=== PATIENT | female | born 1995 | race Caucasian/White ===

== ENCOUNTER 2016-11-17 17:48 | Emergency (ER) | payer OTHER ==
[~2016-11-17] VITALS: Ht 160 cm; Wt 67.0 kg
[~2016-11-17 17:48] MED LIST: BUSP5TAB PO; CITA10TA4 PO; CORT1SOL LEFT EAR; IBUP-232 PO; IMUR50TA PO; INFL100P; LIAL1.2T PO
[2016-11-17 17:55] VITALS: BP 116/89; PULSE 96; RESP 18; TEMP 98.9; O2SAT 98
[2016-11-17] MEDS ORDERED: diphenhydrAMINE HCL 50 MG/ML VIAL IV PUSH ONE (19:30)
[2016-11-17] MEDS ORDERED: KETOROLAC TROMETHAMINE 30 MG/ML (IVP) VIAL IV PUSH ONE (19:30)
[2016-11-17] MEDS ORDERED: SODIUM CHLOR 0.9% 1000 ML INJ 1,000 ML IV ONE (19:30)
[2016-11-17] MEDS ORDERED: PROCHLORPERAZINE INJ 10 MG/2 ML VIAL IV PUSH ONE (19:30)
--- NOTE | 2016-11-17 19:56 | RADHPO ---
EXAM DATE/TIME: 11/17/2016 19:35 [facility] COMPARISON: No previous studies available for comparison. INDICATIONS : Cough, headache and short of breath. MEDICAL HISTORY : None. SURGICAL HISTORY : None. ENCOUNTER: Initial ACUITY: 1 week PAIN SCORE: 0/10 LOCATION: Bilateral chest FINDINGS: The lungs are clear without infiltrate, nodule, or mass. There is no appreciable pleural effusion fo r technique. Heart and mediastinum are unremarkable. CONCLUSION: No acute cardiopulmonary disease. Martinez Connelly MD on November 17, 2016 at 19:54 Board Certified Radiologist. This report was verified electronically.
[2016-11-17 21:00] VITALS: BP 114/68; PULSE 77; RESP 16; O2SAT 98
--- NOTE | 2016-11-17 21:11 | PD ---
HPI Chief Complaint: Cold / Flu Symptoms Time Seen by Provider: 19:16 Travel History International Travel<30 days: No Contact w/Intl Traveler<30days: No Traveled to known affect area: No History of Present Illness HPI Patient is a 21-year-old female with history of Crohn's disease who comes in complaining of a headache and feeling unwell. She says she has had a frontal headache for the past week. She also reports having a cough, and generalized body aches. She says she has felt feverish, but has not taken her temperature. She denies any nausea or vomiting or abdominal pain. She denies any blurred vision. She denies any head trauma. She denies any shortness of breath. PFSH Past Medical History Anxiety: Yes Depression: Yes Diminished Hearing: No Gastrointestinal Disorders: Yes (Crohn's disease) Immunizations Current: Yes Ulcer: Yes (GASTRIC AND INTESTINAL) ?: Not : 0 Social History Alcohol Use: Yes (OCC) Tobacco Use: No Substance Use: No Allergies-Medications (Allergen,Severity, Reaction): Coded Allergies: No Known Allergies (Verified , 11/17/16) Reported Meds & Prescriptions Reported Meds & Active Scripts Active Cortisporin HC Otic Drops (Lrmyqumf-Bwutsndop-HU Otic Drops) 3.5-10,000-1 Mg- Units-% Soln 4 Drop LEFT EAR QID Ibuprofen 600 Mg Tab 600 Mg PO TID Reported Citalopram (Citalopram Hydrobromide) 10 Mg Tab 10 Mg PO DAILY Buspirone (Buspirone HCl) 5 Mg Tab 5 Mg PO DAILY Lialda (Mesalamine) 1.2 Gm Tabdr 1.2 Gm PO BID Take with a meal. Imuran (Azathioprine) 50 Mg Tab 50 Mg PO DAILY Hazardous agent: use appropriate precautions for handling and disposal. Remicade Inj (Infliximab) 100 Mg Inj EVERY 8 WEEKS Review of Systems General / Constitutional: Positive: Fever, No: Chills Eyes: No: Blurred Vision HENT: Positive: Headaches, No: Neck Stiffness, Neck Pain Cardiovascular: No: Chest Pain or Discomfort Respiratory: Positive: Cough, No: Shortness of Breath Gastrointestinal: No: Nausea, Vomiting, Abdominal Pain Skin: No Rash, No Change in Pigmentation Neurologic: No: Weakness, Dizziness Physical Exam Narrative GENERAL: Awake and alert, in no acute distress. SKIN: Focused skin assessment warm/dry. HEAD: Atraumatic. Normocephalic. EYES: Pupils equal and round. No scleral icterus. Extraocular movements intact. ENT: No nasal bleeding or discharge. Mucous membranes pink and moist. NECK: Trachea midline. No JVD. No meningeal signs. CARDIOVASCULAR: Regular rate and rhythm. No murmur appreciated. RESPIRATORY: No accessory muscle use. Clear to auscultation. Breath sounds equal bilaterally. MUSCULOSKELETAL: No obvious deformities. No clubbing. No cyanosis. No edema. NEUROLOGICAL: Awake and alert. No obvious cranial nerve deficits. Motor grossly within normal limits. Normal speech. Data Data Last Documented VS Vital Signs Date Time Temp Pulse Resp B/P Pulse Ox O2 Delivery O2 Flow Rate FiO2 11/17/16 21:37 16 11/17/16 21:00 77 114/68 98 Room Air 11/17/16 17:55 98.9 Orders Ed Urine Pregnancytest Poc (11/17/16 19:24) Chest, Pa & Lat (11/17/16 ) Sodium Chlor 0.9% 1000 Ml Inj (Ns 1000 M (11/17/16 19:30) Ketorolac Inj (Toradol Inj) (11/17/16 19:30) Prochlorperazine Inj (Compazine Inj) (11/17/16 19:30) Diphenhydramine Inj (Benadryl Inj) (11/17/16 19:30) Iv Access Insert/Monitor (11/17/16 19:24) MDM Medical Decision Making Medical Screen Exam Complete: Yes Emergency Medical Condition: Yes Differential Diagnosis URI versus influenza versus viral illness versus migraine Narrative Course Patient is a 21 year old female who comes in complaining of cough and headache. Exam shows no neurologic abnormalities, no other abnormalities. CXR performed shows no acute abnormalities. Given IVF, Compazine, benadryl and toradol. She reports resolution of her headache. Will be discharged with prescription for Fioricet. Advised to follow up with her doctor. Advised to return to the ED as needed for any worsening symptoms. Diagnosis Primary Impression: Headache Qualified Code: R51 - Acute nonintractable headache, unspecified headache type Patient Instructions: Acute Headache (ED), General Instructions Additional Instructions: Drink plenty of fluids. Take Fioricet as needed for severe headache, do not combine with Tylenol as it has Tylenol in it. Return to the ED as needed for any worsening symptoms. Follow up with your doctor. Scripts Zdboouqtxw-Dsrmhrjbzqmwd-Fktapbhr (Fioricet)50-300-40 Mg Cap1 Cap PO Q4H PRN ( HEADACHE) #15 CAP Ref 0 Prov:Stephanie Mccarthy MD 11/17/16 Disposition: 01 DISCHARGE HOME Condition: Stable Stephanie Mccarthy MD Nov 17, 2016 21:11
[2016-11-17 21:37] VITALS: RESP 16
[2016-11-17] MEDS ORDERED: BUTA1CAP PO (21:41)
== END 2016-11-17 21:47 | disposition home or self-care (01) ==
LOC: PHED 17:48 → PHEFT 21:47
DX: R51 Headache (principal); R05 Cough; R52 Pain, unspecified; F41.9 Anxiety disorder, unspecified; F32.9 Major depressive disorder, single episode, unspecified; K50.90 Crohn's disease, unspecified, without complications
CPT/HCPCS: 71020; 84703; 96361; 96374; 96375; 99284; J0780; J1200; J1885; J7030

== ENCOUNTER 2016-12-07 17:32 | Emergency (ER) | payer OTHER ==
[~2016-12-07] VITALS: Ht 160 cm; Wt 66.7 kg
[~2016-12-07 17:32] MED LIST changes: +BUTA1CAP PO
[2016-12-07 17:38] VITALS: BP 128/87; PULSE 102; RESP 16; TEMP 98.2; O2SAT 98
[2016-12-07] MEDS ORDERED: SODIUM CHLORIDE 0.9% FLUSH 10 ML FLUSH IV FLUSH PRN (17:45)
[2016-12-07] MEDS ORDERED: DICY10 PO (17:52)
[2016-12-07 17:55] VITALS: O2SAT 98
--- NOTE | 2016-12-07 17:56 | PD ---
HPI Chief Complaint: GI Complaint Time Seen by Provider: 17:51 Travel History International Travel<30 days: No Contact w/Intl Traveler<30days: No Traveled to known affect area: No History of Present Illness HPI 21-year-old female with history of Crohn's disease, presents to the ER today for 1 week history of crampy lower abdominal pains which she states is a 7 out of 10, nausea, one episode of vomiting this morning, and multiple episodes of diarrhea daily. She denies any blood in the stools or black stools this time. She denies any fevers or any other symptoms. She is due for her Remicade which mom states she gets every 8 weeks. She has not yet been able to get her Remicade shot because of insurance issues. Modifying Factors: None Associated Signs & Symptoms: Lower abdominal pain, nausea, vomiting, diarrhea Risk Factors: Crohn's disease PFSH Past Medical History Anxiety: Yes Depression: Yes Diminished Hearing: No Gastrointestinal Disorders: Yes (Crohn's disease) Immunizations Current: Yes Ulcer: Yes (GASTRIC AND INTESTINAL) ?: Not LMP: 11/30/16 : 0 Social History Alcohol Use: Yes ([facility]) Tobacco Use: No Substance Use: No Allergies-Medications (Allergen,Severity, Reaction): Coded Allergies: No Known Allergies (Verified , 12/07/16) Reported Meds & Prescriptions Reported Meds & Active Scripts Active Reported Bentyl (Dicyclomine HCl) 10 Mg Cap 10 Mg PO TID PRN Remicade Inj (Infliximab) 100 Mg Inj EVERY 8 WEEKS Review of Systems Except as stated in HPI: all other systems reviewed are Neg Physical Exam Narrative GENERAL: Well-developed young white female patient currently mild distress. Awake and oriented 3. SKIN: Focused skin assessment warm/dry. HEAD: Atraumatic. Normocephalic. EYES: Pupils equal and round. No scleral icterus. No injection or drainage. ENT: No nasal bleeding or discharge. Mucous membranes pink and moist. NECK: Trachea midline. No JVD. CARDIOVASCULAR: Regular rate and rhythm. No murmur appreciated. RESPIRATORY: No accessory muscle use. Clear to auscultation. Breath sounds equal bilaterally. GASTROINTESTINAL: Abdomen soft, mild lower abdominal tenderness without guarding or rebound, nondistended. Hepatic and splenic margins not palpable. MUSCULOSKELETAL: No obvious deformities. No clubbing. No cyanosis. No edema. NEUROLOGICAL: Awake and alert. No obvious cranial nerve deficits. Motor grossly within normal limits. Normal speech. PSYCHIATRIC: Appropriate mood and affect; insight and judgment normal. Data Data Last Documented VS Vital Signs Date Time Temp Pulse Resp B/P Pulse Ox O2 Delivery O2 Flow Rate FiO2 12/07/16 17:55 98 Room Air 12/07/16 17:38 98.2 102 16 128/87 Orders Complete Blood Count With Diff (12/07/16 17:44) Comprehensive Metabolic Panel (12/07/16 17:44) Lipase (12/07/16 17:44) Urinalysis - C+S If Indicated (12/07/16 17:44) Iv Access Insert/Monitor (12/07/16 17:44) Ecg Monitoring (12/07/16 17:44) Oximetry (12/07/16 17:44) Sodium Chloride 0.9% Flush (Ns Flush) (12/07/16 17:45) Ed Urine Pregnancytest Poc (12/07/16 17:44) Sodium Chlor 0.9% 1000 Ml Inj (Ns 1000 M (12/07/16 18:00) Ondansetron Inj (Zofran Inj) (12/07/16 18:00) Hydromorphone Pf Inj (Dilaudid Pf Inj) (12/07/16 18:00) Abdomen, Flat & Upright (12/07/16 17:52) Labs Laboratory Tests Test 12/07/16 18:10 White Blood Count 10.4 TH/MM3 Red Blood Count 4.45 MIL/MM3 Hemoglobin 11.6 GM/DL Hematocrit 35.8 % Mean Corpuscular Volume 80.4 FL Mean Corpuscular Hemoglobin 26.1 PG Mean Corpuscular Hemoglobin 32.5 % Concent Red Cell Distribution Width 15.7 % Platelet Count 401 TH/MM3 Mean Platelet Volume 7.4 FL Neutrophils (%) (Auto) 60.3 % Lymphocytes (%) (Auto) 22.0 % Monocytes (%) (Auto) 14.5 % Eosinophils (%) (Auto) 2.5 % Basophils (%) (Auto) 0.7 % Neutrophils # (Auto) 6.2 TH/MM3 Lymphocytes # (Auto) 2.3 TH/MM3 Monocytes # (Auto) 1.5 TH/MM3 Eosinophils # (Auto) 0.3 TH/MM3 Basophils # (Auto) 0.1 TH/MM3 CBC Comment DIFF FINAL Differential Comment Urine Collection Type CLEAN CATCH Urine Color YELLOW Urine Turbidity CLEAR Urine pH 5.5 Urine Specific [place] 1.012 Urine Protein NEG mg/dL Urine Glucose (UA) NEG mg/dL Urine Ketones 15 mg/dL Urine Occult Blood TRACE Urine Nitrite NEG Urine Bilirubin NEG Urine Leukocyte Esterase NEG Urine WBC 0-2 /hpf Urine Squamous Epithelial 0-5 /hpf Cells Microscopic Urinalysis Comment CULT NOT INDICATED Sodium Level 140 MEQ/L Potassium Level 3.5 MEQ/L Chloride Level 105 MEQ/L Carbon Dioxide Level 26.0 MEQ/L Anion Gap 9 MEQ/L Blood Urea Nitrogen 10 MG/DL Creatinine 0.80 MG/DL Estimat Glomerular Filtration 91 ML/MIN Rate Random Glucose 84 MG/DL Calcium Level 8.4 MG/DL Total Bilirubin 0.5 MG/DL Aspartate Amino Transf 18 U/L (AST/SGOT) Alanine Aminotransferase 16 U/L (ALT/SGPT) Alkaline Phosphatase 83 U/L Total Protein 8.0 GM/DL Albumin 3.5 GM/DL Lipase 175 U/L MDM Medical Decision Making Medical Screen Exam Complete: Yes Emergency Medical Condition: Yes Medical Record Reviewed: Yes Interpretation(s) Laboratory Tests Test 12/07/16 18:10 Mean Corpuscular Hemoglobin 26.1 PG (27.0-34.0) Monocytes (%) (Auto) 14.5 % (0.0-8.0) Monocytes # (Auto) 1.5 TH/MM3 (0-0.9) Urine Ketones 15 mg/dL (NEG) Urine Occult Blood TRACE (NEG) Calcium Level 8.4 MG/DL (8.5-10.1) Last 24 hours Impressions Abdomen X-Ray 12/07/16 1442 Signed Impressions: Service Date/Time: Wednesday, December 07, 2016 18:44 - CONCLUSION: No dilated loops of small or large bowel. Petros Emery MD Differential Diagnosis Lower abdominal pains, diarrhea, nausea, vomitingCrohn's exacerbation versus gastroenteritis versus colitis versus diverticulitis versus dehydration versus metabolic issues versus UTI versus Narrative Course Lab work did not indicate significant leukocytosis or signs of dehydration or metabolic issues. Abdomen is fairly soft and x-ray did not show any signs of acute obstruction. I do not suspect an acute intra-abdominal process in this case but I do suspect that she may have a Crohn's exacerbation. Symptoms are consistent with a Crohn's exacerbation. My plan would be to treat her Crohn's exacerbation with steroids and symptomatic relief and have her follow-up with primary care and GI doctor. She does not remember the name of her current GI doctor. She also points out a left eyelid irritation and points out a small ulcer on the left lower eyelid laterally on the conjunctival which has been there for several days. She states the last time she had a Crohn's exacerbation she also had some left eye irritation as well but she was not evaluated for it. Her case was discussed with Dr. Kurtz who states that we can try erythromycin eye ointment and have her follow-up with her and her clinic. Patient should return for any worsening in vomiting, pain, fevers, or new symptoms as needed. I have talked with patient and mom regarding getting x- rays versus CAT scans. At this point, I do not see any obvious indication such as abnormal lab work, point tenderness, signs of acute abdomen, or other signs and x-rays to obtain CT scanning. Considering patient's age, we are trying to keep her radiation exposure and scanning down. I have talked to the patient and mom regarding this and they state understanding and are comfortable with not obtaining CT scanning at this time. The plan as well the risks were discussed with patient and mom and they stated understanding. Diagnosis Primary Impression: Exacerbation of Crohn's disease Additional Impression: Marginal corneal ulcer, left eye Referrals: Mary Kurtz MD Additional Instructions: You should follow-up with booking manager regarding the left I ulcerated area. In addition, you should follow-up with your GI doctor and primary care physician regarding Crohn's exacerbation. You should return for any worsening in pain, any fevers, vomiting, or new symptoms as needed. Med/Other Pt SpecificInfo: Prescription(s) given Scripts Erythromycin Opth Oint 5 Mg/Gm Oint1 Applic LEFT EYE QID #1 TUBE Ref 0 Prov:Tay Perez MD 12/07/16 Ciprofloxacin (Cipro)500 Mg Rsm994 Mg PO BID 7 Days Ref 0 Prov:Tay Perez MD 12/07/16 Metronidazole (Flagyl)500 Mg Edd278 Mg PO TID 7 Days Ref 0 Prov:Tay Perez MD 12/07/16 Ondansetron Odt (Zofran Odt)4 Mg Tab4 Mg SL Q6HR PRN (Nausea/Vomiting) #12 TAB Ref 0 Prov:Tay Perez MD 12/07/16 Ibuprofen (Motrin Ib)200 Mg Rim657 Mg PO Q6H PRN (PAIN SCALE 1 TO 10) #30 TAB Ref 0 Prov:Tay Perez MD 12/07/16 Methylprednisolone Dosepak (Medrol Dosepak)4 Mg Dspk4 Mg PO DIRECTED #1 DSPK Ref 0 Per Pharmacist direction Prov:Tay Perez MD 12/07/16 Disposition: 01 DISCHARGE HOME Condition: Stable Tay Preez MD Dec 07, 2016 17:56
[2016-12-07] MEDS ORDERED: SODIUM CHLOR 0.9% 1000 ML INJ 1,000 ML IV ONE (18:00)
[2016-12-07] MEDS ORDERED: HYDROmorphone HCL PF 1 MG/ML VIAL IV PUSH ONE (18:00)
[2016-12-07] MEDS ORDERED: ONDANSETRON HCL 4 MG/2 ML VIAL IV PUSH ONE (18:00)
[2016-12-07 18:18] LABS: AUTOMATED NEUTROPHIL # 6.2 TH/MM3 (1.8-7.7); BASOPHIL # 0.1 TH/MM3 (0-0.2); BASOPHIL % 0.7 % (0.0-2.0); EOSINOPHIL # 0.3 TH/MM3 (0-0.4); EOSINOPHIL % 2.5 % (0.0-4.0); HEMATOCRIT 35.8 % (35.0-46.0); HEMO FLAGS DIFF FINAL; LYMPHOCYTE # 2.3 TH/MM3 (1.0-4.8); MEAN CELL VOLUME 80.4 FL (80.0-100.0); MEAN CORPUSCULAR HEMOGLOBIN 26.1 PG (27.0-34.0); MEAN CORPUSCULAR HGB CONC 32.5 % (32.0-36.0); MONO % 14.5 % (0.0-8.0); NEUT % 60.3 % (16.0-70.0); PLATELET COUNT 401 TH/MM3 (150-450); RED BLOOD COUNT 4.45 MIL/MM3 (4.00-5.30); RED CELL DISTRIBUTION WIDTH 15.7 % (11.6-17.2); WHITE BLOOD COUNT 10.4 TH/MM3 (4.0-11.0)
[2016-12-07 18:22] LABS: BLOOD, URINE TRACE (NEG); GLUCOSE,URINE NEG (NEG); KETONE, URINE 15 mg/dL (NEG); NITRITE,URINE NEG (NEG); PH, URINE 5.5 (5.0-8.5)
[2016-12-07 18:24] LABS: CHLORIDE 105 MEQ/L (98-107); POTASSIUM 3.5 MEQ/L (3.5-5.1); SODIUM (NA) 140 MEQ/L (136-145)
[2016-12-07 18:25] LABS: METHOD OF COLLECTION CLEAN CATCH; URINE COLOR YELLOW (YELLW/STRAW)
[2016-12-07 18:27] LABS: COMMENT (UR) CULT NOT INDICATED; CULTURE IF INDICATED CULT NOT INDICATED; SQUAMOUS EPITHELIAL CELL URINE 0-5 /hpf (0-5); WBC, URINE 0-2 /hpf (0-5)
[2016-12-07 18:28] LABS: ANION GAP 9 MEQ/L (5-15); BLOOD UREA NITROGEN 10 MG/DL (7-18)
[2016-12-07 18:31] LABS: ALT (GPT) 16 U/L (9-42); AST (GOT) 18 U/L (16-38); GLOMERULAR FILTRATION RATE 91 ML/MIN (>89)
[2016-12-07 18:33] LABS: TOTAL BILIRUBIN ADULT 0.5 MG/DL (0.2-1.0)
[2016-12-07 18:34] LABS: ALKALINE PHOSPHATASE 83 U/L (45-117)
--- NOTE | 2016-12-07 18:55 | RADHPO ---
EXAM DATE/TIME: 12/07/2016 18:44 [facility] COMPARISON: No previous studies available for comparison. INDICATIONS : Abdomen pain for 1 week MEDICAL HISTORY : Crohn's disease. SURGICAL HISTORY : None. ENCOUNTER: Initial ACUITY: 1 week PAIN SCORE: 7/10 LOCATION: Bilateral abdomen FINDINGS: Supine and upright views of the abdomen were performed. The abdominal bowel gas pattern is normal. No air fluid levels are seen. No abnormal masses, calcifications, or organomegaly is seen. The visu alized lower lungs are clear. No evidence of free intraperitoneal gas. Mild curvature of the lumbar spine convex towards the left. Umbilical ring.. CONCLUSION: No dilated loops of small or large bowel. Petros Emery MD on December 07, 2016 at 18:53 Board Certified Radiologist. This report was verified electronically.
[2016-12-07] MEDS ORDERED: ZOFR4TAB3 SL (19:18)
[2016-12-07] MEDS ORDERED: CIPR-9 PO (19:18)
[2016-12-07] MEDS ORDERED: MOTR200T4 PO (19:18)
[2016-12-07] MEDS ORDERED: METR-1 PO (19:18)
[2016-12-07] MEDS ORDERED: MEDR4PAK PO (19:18)
[2016-12-07] MEDS ORDERED: ERYTOIN10 LEFT EYE (19:20)
[2016-12-07 19:37] VITALS: BP 125/72
== END 2016-12-07 19:46 | disposition home or self-care (01) ==
LOC: PHED 17:32
DX: K50.918 Crohn's disease, unspecified, with other complication (principal); H16.002 Unspecified corneal ulcer, left eye
CPT/HCPCS: 74020; 80053; 81001; 83690; 84703; 85025; 96361; 96374; 96375; 99284; J1170; J2405; J7030

== ENCOUNTER 2016-12-11 08:43 | Emergency (ER) | payer OTHER ==
[~2016-12-11] VITALS: Ht 160 cm; Wt 65.2 kg
[~2016-12-11 08:43] MED LIST changes: -BUSP5TAB PO; -BUTA1CAP PO; +CIPR-9 PO; -CITA10TA4 PO; -CORT1SOL LEFT EAR; +DICY10 PO; +ERYTOIN10 LEFT EYE; -IBUP-232 PO; -IMUR50TA PO; -LIAL1.2T PO; +MEDR4PAK PO; +METR-1 PO; +MOTR200T4 PO; +ZOFR4TAB3 SL
[2016-12-11 08:59] VITALS: BP 129/93; PULSE 93; RESP 16; TEMP 97.8; O2SAT 100
[2016-12-11] MEDS ORDERED: SODIUM CHLORIDE 0.9% FLUSH 10 ML FLUSH IV FLUSH PRN (09:15)
[2016-12-11] MEDS ORDERED: MORPHINE SULFATE 4 MG/ML INJ IV PUSH ONE (09:15)
[2016-12-11] MEDS ORDERED: SODIUM CHLOR 0.9% 1000 ML INJ 1,000 ML IV ONE (09:15)
[2016-12-11] MEDS ORDERED: ONDANSETRON HCL 4 MG/2 ML VIAL IV ONE (09:15)
[2016-12-11 09:28] LABS: AUTOMATED NEUTROPHIL # 6.2 TH/MM3 (1.8-7.7); BASOPHIL # 0.2 TH/MM3 (0-0.2); BASOPHIL % 2.5 % (0.0-2.0); EOSINOPHIL % 0.5 % (0.0-4.0); HEMATOCRIT 36.9 % (35.0-46.0); HEMO FLAGS DIFF FINAL; LYMPH % 16.5 % (9.0-44.0); LYMPHOCYTE # 1.4 TH/MM3 (1.0-4.8); MEAN CELL VOLUME 80.8 FL (80.0-100.0); MEAN CORPUSCULAR HEMOGLOBIN 26.4 PG (27.0-34.0); MEAN CORPUSCULAR HGB CONC 32.6 % (32.0-36.0); MONO % 10.4 % (0.0-8.0); NEUT % 70.1 % (16.0-70.0); PLATELET COUNT 488 TH/MM3 (150-450); RED BLOOD COUNT 4.57 MIL/MM3 (4.00-5.30); RED CELL DISTRIBUTION WIDTH 15.9 % (11.6-17.2); WHITE BLOOD COUNT 8.7 TH/MM3 (4.0-11.0)
[2016-12-11 09:32] VITALS: O2SAT 100
--- NOTE | 2016-12-11 09:32 | PD ---
HPI Chief Complaint: Abdominal Pain Time Seen by Provider: 09:04 Travel History International Travel<30 days: No Contact w/Intl Traveler<30days: No Traveled to known affect area: No History of Present Illness HPI This is a 21-year-old female who presents to the emergency department with a history of Crohn's disease with over a week of nausea, vomiting, and abdominal discomfort. She describes as her abdominal discomfort is mostly in the epigastrium, moderate severity associated with constant nausea and dry heaving. She was seen in the emergency department 2 days ago. She had reassuring labs at that time. CT imaging was deferred given her age. She was discharged on antibiotic therapy and prednisone however her symptoms have just been worsening. She receives Remicade and is due to have another injection shortly. She follows with [facility] Past Medical History Anxiety: Yes Depression: Yes Diminished Hearing: No Gastrointestinal Disorders: Yes (Crohn's disease) Immunizations Current: Yes Ulcer: Yes (GASTRIC AND INTESTINAL) ?: Not LMP: 11/30/16 : 0 Social History Alcohol Use: No Tobacco Use: No Substance Use: No Allergies-Medications (Allergen,Severity, Reaction): Coded Allergies: No Known Allergies (Verified , 12/11/16) Reported Meds & Prescriptions Reported Meds & Active Scripts Active Cipro (Ciprofloxacin HCl) 500 Mg Tab 500 Mg PO BID 7 Days Flagyl (Metronidazole) 500 Mg Tab 500 Mg PO TID 7 Days Zofran Odt (Ondansetron Odt) 4 Mg Tab 4 Mg SL Q6HR PRN Motrin Ib (Ibuprofen) 200 Mg Tab 600 Mg PO Q6H PRN Medrol Dosepak (Methylprednisolone) 4 Mg Dspk 4 Mg PO DIRECTED Per Pharmacist direction Reported Bentyl (Dicyclomine HCl) 10 Mg Cap 10 Mg PO TID PRN Remicade Inj (Infliximab) 100 Mg Inj EVERY 8 WEEKS Review of Systems Except as stated in HPI: all other systems reviewed are Neg Physical Exam Narrative GENERAL: Uncomfortable appearing SKIN: Focused skin assessment warm and dry. HEAD: Atraumatic. Normocephalic. EYES: Pupils equal and round. No injection or drainage. ENT: Dry mucous membranes NECK: Trachea midline. CARDIOVASCULAR: Regular rate and rhythm. No murmur appreciated. RESPIRATORY: Clear to auscultation. Breath sounds equal bilaterally. GASTROINTESTINAL: Abdomen soft, mildly tender to palpation in the epigastrium with no rebound or guarding. MUSCULOSKELETAL: No obvious deformities. NEUROLOGICAL: Awake and alert. No obvious cranial nerve deficits. Moving all extremities. PSYCHIATRIC: Appropriate mood and affect; insight and judgment normal. Data Data Last Documented VS Vital Signs Date Time Temp Pulse Resp B/P Pulse Ox O2 Delivery O2 Flow Rate FiO2 12/11/16 09:32 100 Room Air 12/11/16 08:59 97.8 93 16 129/93 Orders Complete Blood Count With Diff (12/11/16 09:09) Comprehensive Metabolic Panel (12/11/16 09:09) Lipase (12/11/16 09:09) Urinalysis - C+S If Indicated (12/11/16 09:09) Ct Abd/Pel W Iv Contrast(Rout) (12/11/16 09:09) Iv Access Insert/Monitor (12/11/16 09:09) Ecg Monitoring (12/11/16 09:09) Oximetry (12/11/16 09:09) Sodium Chloride 0.9% Flush (Ns Flush) (12/11/16 09:15) Ondansetron Inj (Zofran Inj) (12/11/16 09:15) Morphine Inj (Morphine Inj) (12/11/16 09:15) Sodium Chlor 0.9% 1000 Ml Inj (Ns 1000 M (12/11/16 09:15) Iohexol 350 Inj (Omnipaque 350 Inj) (12/11/16 11:20) Labs Laboratory Tests Test 12/11/16 12/11/16 09:20 11:16 White Blood Count 8.7 TH/MM3 Red Blood Count 4.57 MIL/MM3 Hemoglobin 12.0 GM/DL Hematocrit 36.9 % Mean Corpuscular Volume 80.8 FL Mean Corpuscular Hemoglobin 26.4 PG Mean Corpuscular Hemoglobin 32.6 % Concent Red Cell Distribution Width 15.9 % Platelet Count 488 TH/MM3 Mean Platelet Volume 7.3 FL Neutrophils (%) (Auto) 70.1 % Lymphocytes (%) (Auto) 16.5 % Monocytes (%) (Auto) 10.4 % Eosinophils (%) (Auto) 0.5 % Basophils (%) (Auto) 2.5 % Neutrophils # (Auto) 6.2 TH/MM3 Lymphocytes # (Auto) 1.4 TH/MM3 Monocytes # (Auto) 0.9 TH/MM3 Eosinophils # (Auto) 0.0 TH/MM3 Basophils # (Auto) 0.2 TH/MM3 CBC Comment DIFF FINAL Differential Comment Sodium Level 142 MEQ/L Potassium Level 3.9 MEQ/L Chloride Level 107 MEQ/L Carbon Dioxide Level 27.2 MEQ/L Anion Gap 8 MEQ/L Blood Urea Nitrogen 12 MG/DL Creatinine 0.66 MG/DL Estimat Glomerular Filtration 114 ML/MIN Rate Random Glucose 104 MG/DL Calcium Level 8.4 MG/DL Total Bilirubin 0.3 MG/DL Aspartate Amino Transf 27 U/L (AST/SGOT) Alanine Aminotransferase 21 U/L (ALT/SGPT) Alkaline Phosphatase 71 U/L Total Protein 8.0 GM/DL Albumin 3.6 GM/DL Lipase 155 U/L Urine Collection Type CLEAN CATCH Urine Color YELLOW Urine Turbidity CLEAR Urine pH 5.5 Urine Specific [place] 1.010 Urine Protein NEG mg/dL Urine Glucose (UA) NEG mg/dL Urine Ketones 40 mg/dL Urine Occult Blood NEG Urine Nitrite NEG Urine Bilirubin NEG Urine Leukocyte Esterase NEG Urine WBC 0-2 /hpf Urine Squamous Epithelial > 8 /hpf Cells Microscopic Urinalysis Comment CULT NOT INDICATED Urine Collection Time 11:16 [facility] Medical Decision Making Medical Screen Exam Complete: Yes Emergency Medical Condition: Yes Interpretation(s) Afebrile, mild tachycardia, normotensive No leukocytosis Electrolytes are reassuring Lipase is normal Urinalysis is negative for infection Last 24 hours Impressions Abdomen/Pelvis CT 12/11/16 0909 Signed Impressions: Service Date/Time: November 10:40 - CONCLUSION: 1. 2.5 x 2.4 cm low-density cystic lesion in the left adnexa consistent with an ovarian cystic structure. This may be the cause of the patient's pain. 2. Unremarkable bowel gas pattern. No oral contrast was given limiting the sensitivity of this study. Jame Higgins MD Differential Diagnosis Crohn's disease, fistula, abscess, gastroenteritis, ovarian cyst rupture Narrative Course This is a 21-year-old female who presents to the emergency department with nausea, vomiting and some epigastric discomfort. She is a history of Crohn's disease. She is due for Remicade infusion in several days. She is placed on a monitor and an IV was established. She was given Zofran and IV hydration. Labs are reassuring. CT abdomen and pelvis was obtained which was unrevealing. She does have a 2 cm ovarian cyst which I doubt is related to her symptoms. I gave the option for the patient to be observed but given her reassuring labs at think it safe for her to be discharged on antiemetics and continue conservative therapy. I advised her to follow up with her GI doctor. Patient was comfortable going home. Diagnosis Primary Impression: Exacerbation of Crohn's disease Qualified Code: K50.90 - Exacerbation of Crohn's disease, without complications Patient Instructions: General Instructions Additional Instructions: If you develop severe or worsening abdominal pain, fever>100.4, persistent vomiting or inability to eat or drink return to the emergency department immediately. Follow up with your primary care physician in 1-2 days for a check-up. Med/Other Pt SpecificInfo: Prescription(s) given Scripts Ondansetron Odt (Zofran Odt)4 Mg Tab4 Mg SL Q6HR PRN (Nausea/Vomiting) #15 TAB Prov:Anabella Schulte MD 12/11/16 Tramadol 50 Mg Tab50 Mg PO Q6H PRN (PAIN) #10 TAB Prov:Anabella Schulte MD 12/11/16 Disposition: 01 DISCHARGE HOME Condition: Stable Anabella Schulte MD Dec 11, 2016 09:32
[2016-12-11 09:55] LABS: CHLORIDE 107 MEQ/L (98-107); POTASSIUM 3.9 MEQ/L (3.5-5.1); SODIUM (NA) 142 MEQ/L (136-145)
[2016-12-11 09:58] LABS: ANION GAP 8 MEQ/L (5-15); BICARBONATE 27.2 MEQ/L (21.0-32.0); BLOOD UREA NITROGEN 12 MG/DL (7-18)
[2016-12-11 10:00] LABS: ALT (GPT) 21 U/L (9-42); GLOMERULAR FILTRATION RATE 114 ML/MIN (>89)
[2016-12-11 10:02] LABS: TOTAL BILIRUBIN ADULT 0.3 MG/DL (0.2-1.0)
[2016-12-11 10:03] LABS: ALKALINE PHOSPHATASE 71 U/L (45-117)
[2016-12-11 10:05] LABS: AST (GOT) 27 U/L (16-38)
[2016-12-11] MEDS ORDERED: IOHEXOL 350 MG/ML 10 ML VIAL (for RAD DIAG) IV ONE (11:20)
--- NOTE | 2016-12-11 11:24 | RADHPO ---
EXAM DATE/TIME: 12/11/2016 10:40 [facility] COMPARISON: No previous studies available for comparison. INDICATIONS : Lower abdomen pain for 10 days. IV CONTRAST: 80 cc Omnipaque 350 (iohexol) IV ORAL CONTRAST: No oral contrast ingested. RADIATION DOSE: 6.36 CTDIvol (mGy) MEDICAL HISTORY : Crohn's disease. SURGICAL HISTORY : None. ENCOUNTER: Initial ACUITY: 1 week PAIN SCALE: 7/10 LOCATION: Lower abdomen TECHNIQUE: Volumetric scanning of the abdomen and pelvis was performed. Using automated exposure control and ad justment of the mA and/or kV according to patient size, radiation dose was kept as low as reasonably achievable to obtain optimal diagnostic quality images. FINDINGS: LOWER LUNGS: The visualized lower lungs are clear. LIVER: Homogeneous density without lesion. There is no dilation of the biliary tree. No calcified gallston es. SPLEEN: Normal size without lesion. PANCREAS: Within normal limits. KIDNEYS: Normal in size and shape. There is no mass, stone or hydronephrosis. ADRENAL GLANDS: Within normal limits. VASCULAR: There is no aortic aneurysm. BOWEL/MESENTERY: The stomach, small bowel, and colon demonstrate no acute abnormality. There is no free intraperitone al air or fluid. No oral contrast was given limiting the sensitivity. ABDOMINAL WALL: Within normal limits. RETROPERITONEUM: There is no lymphadenopathy. BLADDER: No wall thickening or mass. REPRODUCTIVE: The uterus and right adnexa are unremarkable. There is a 2.5 x 2.4 cm low-density cystic lesion in th e left ovary. INGUINAL: There is no lymphadenopathy or hernia. MUSCULOSKELETAL: Within normal limits for patient age. CONCLUSION: 1. 2.5 x 2.4 cm low-density cystic lesion in the left adnexa consistent with an ovarian cystic struct ure. This may be the cause of the patient's pain. 2. Unremarkable bowel gas pattern. No oral contrast was given limiting the sensitivity of this study. Jame Higgins MD on December 11, 2016 at 11:20 Board Certified Radiologist. This report was verified electronically.
[2016-12-11 11:26] LABS: BLOOD, URINE NEG (NEG); GLUCOSE,URINE NEG (NEG); KETONE, URINE 40 mg/dL (NEG); NITRITE,URINE NEG (NEG); PH, URINE 5.5 (5.0-8.5)
[2016-12-11 11:38] LABS: COMMENT (UR) CULT NOT INDICATED; CULTURE IF INDICATED CULT NOT INDICATED; METHOD OF COLLECTION CLEAN CATCH; SQUAMOUS EPITHELIAL CELL URINE > 8 /hpf (0-5); URINE COLOR YELLOW (YELLW/STRAW); WBC, URINE 0-2 /hpf (0-5)
[2016-12-11] MEDS ORDERED: ZOFR4TAB3 SL (11:57)
[2016-12-11] MEDS ORDERED: TRAM50TA PO (11:57)
== END 2016-12-11 12:13 | disposition home or self-care (01) ==
LOC: PHED 08:43
DX: K50.90 Crohn's disease, unspecified, without complications (principal); R10.9 Unspecified abdominal pain
CPT/HCPCS: 74177; 80053; 81001; 83690; 85025; 96361; 96374; 96375; 99284; J2270; J2405; J7030; Q9967

== ENCOUNTER 2017-09-07 13:03 | Emergency (ER) | payer OTHER | END 2017-09-07 14:36 | disposition home or self-care (01) | LOC: PHEFT 13:03 | DX: B34.9 Viral infection, unspecified (principal); F32.9 Major depressive disorder, single episode, unspecified; K50.90 Crohn's disease, unspecified, without complications | CPT/HCPCS: 99282 ==